=== PATIENT | male | born 1940 | race Caucasian/White ===

== ENCOUNTER 2017-10-21 06:00 | Day surgery (SDC) | payer MEDICARE ==
--- NOTE | 2017-10-10 07:41 | HP ---
CC: Jasmeet Fuller MD * HISTORY AND PHYSICAL: DATE OF PLANNED ADMISSION AND SURGERY: 10/21/17 HISTORY OF PRESENT ILLNESS: Mr. Christopher is a 77-year-old white male who is admitted with recurrent episodes of gross hematuria and a distal left ureteral calculus for cystoscopy, left ureteroscopy, laser lithotripsy, and left ureteral stent placement. Mr. Christopher is a known stone former and in March 2013, I performed a left ureteroscopy and laser lithotripsy for a 1.4 cm left ureteral calculus. The stone analysis showed it to be 70% uric acid and 30% calcium. He did well postoperatively. Three months ago, he started having recurrent episodes of gross painless hematuria. There was no associated flank or abdominal pain and no voiding symptoms. He was worked up with renal ultrasound and with a cystoscopy and no abnormalities were noted. He then had a CT urogram, which showed a 5 mm nonobstructing calculus in the distal left ureter about 4 to 5 cm above the level of the ureterovesical junction. There was moderate degree of edema of the ureteral wall adjacent to the calculus. No other abnormalities were noted in the kidneys or in the ureters. PAST MEDICAL HISTORY AND SYSTEM REVIEW: He had a transurethral resection of the prostate in December 2010 with good results. He has atrial fibrillation and is followed by Dr. Crawford in [place]. He is maintained on Pradaxa 150 mg daily, digoxin 125 mcg daily, metoprolol 50 mg daily. He has hyperlipidemia, on pravastatin 10 mg daily. 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 He denies any allergies to medications. He denies any chest pain or shortness of breath. He has sleep apnea. He was last evaluated by Dr. Crawford 1 year ago and I am including a copy of his note at that visit. He has not had any cardiac event or changes in his health since his last visit with him. PHYSICAL EXAMINATION GENERAL: Pleasant and healthy looking white male, who looks good for his age. VITAL SIGNS: Blood pressure 140/90, pulse of 90. LUNGS: Clear. HEART: Irregular. No murmurs. ABDOMEN: Soft. No masses. No tenderness and no CVA tenderness. EXTERNAL GENITALIA: Normal. RECTAL: Exam shows a nonenlarged and nonsuspicious prostate. IMPRESSION: 1. Recurrent episodes of gross painless hematuria of 3 months' duration with the only abnormal finding being a 5 mm calculus in the distal left ureter with edema of the ureteral wall adjacent to the calculus. This is the most likely cause of the episodes of hematuria. 2. Atrial fibrillation, on anticoagulation and treatment. 3. Hypertension. PLAN: Considering the episodes for gross hematuria have been recurring over the last 3 months and the stone is the only abnormal finding, it is unlikely that the stone will pass spontaneously at this time. The plan is to proceed with a cystoscopy, left ureteroscopy, laser lithotripsy and left ureteral stent placement. I instructed the patient to carefully strain his urine from the time of the CT until the day of the procedure. The plan is to do the procedure without having to stop his Pradaxa. All his questions were answered. [id number]/[facility] #: [id number] AMI
[~2017-10-21 06:00] MED LIST: Buffered Lidocaine 0.9% SYRIN* 5 ML/SYR SYRINGE INTRADERM ONE; Dexamethasone IV* 4 MG/ML 1 ML (4 MG) IV SLOW PU ONE; Famotidine IV* 10 MG/ML 2 ML (20 mg) IV ONE
[2017-10-21] MEDS ORDERED: Famotidine IV* 10 MG/ML 2 ML (20 mg) ONE (06:10)
[2017-10-21] MEDS ORDERED: Dexamethasone IV* 4 MG/ML 1 ML (4 MG) ONE (06:11)
[2017-10-21] MEDS ORDERED: Buffered Lidocaine 0.9% SYRIN* 5 ML/SYR SYRINGE ONE (06:11)
[2017-10-21] MEDS ORDERED: cefTRIAXone(*) 2 GM ADDV.VIAL IVPB ONE (06:11)
[2017-10-21] MEDS ORDERED: Naloxone* 0.4 MG/ML 1 ML VIAL IV PRN (07:17)
[2017-10-21] MEDS ORDERED: fentaNYL* 50 MCG/ML 2 ML VIAL (100 MCG VIAL) IV PRN (07:17)
[2017-10-21] MEDS ORDERED: DiMENhydriNATE IV* 50 MG/ML VIAL IV PUSH PRN (07:17)
[2017-10-21] MEDS ORDERED: Iohexol 180 (CONTRAST) 10 ML SDV IV ONE (07:20)
[2017-10-21] MEDS ORDERED: fentaNYL* 50 MCG/ML 2 ML VIAL (100 MCG VIAL) ONE (07:35)
[2017-10-21] MEDS ORDERED: Midazolam* 1 MG/ML 2 ML VIAL (2 MG) ONE (07:36)
--- NOTE | 2017-10-21 08:31 | RAD ---
CPT II Codes: 6045F INDICATION: Left ureteral stent placement. Fluoroscopic services provided for referring physician. 4 seconds of fluoroscopy time was used. This placement of a left ureteral stent. IMPRESSION: Left ureteral stent placement.
[2017-10-21] MEDS ORDERED: Phenylephrine INJ* 10 MG/ML 1 ML VIAL (10 MG) ONE (08:33)
[2017-10-21] MEDS ORDERED: Propofol* 10 MG/ML 20 ML BTL IV PUSH ONE (08:33)
[2017-10-21] MEDS ORDERED: Ondansetron INJ* 2 MG/ML VIAL ONE (08:33)
[2017-10-21 09:25] VITALS: BP 143/97
--- NOTE | 2017-10-21 23:33 | OP ---
CC: Dr. Fuller * DATE OF OPERATION: 10/21/17 - [facility] DATE OF : 38 SURGEON: Tramaine Thomas MD ANESTHESIOLOGIST: David Branham MD ANESTHESIA: General. PRE-OP DIAGNOSES: 1. Distal left ureteral calculus. 2. Recurrent episodes of gross hematuria due to above. POST-OP DIAGNOSES: 1. Distal left ureteral calculus. 2. Recurrent episodes of gross hematuria due to above. OPERATIVE PROCEDURE: 1. Cystoscopy. 2. Left ureteroscopy and extraction of distal left ureteral calculus (5 mm). 3. Left retrograde pyelography. INDICATIONS: Mr. Christopher is a 77-year-old white male who was worked up for recurrent episodes of gross painless hematuria. Cystoscopy was negative. Renal ultrasound was normal. CT urogram showed a 5-mm non obstructing distal left ureteral calculus. No other abnormalities were noted and the calculus was diagnosed as being the only identifiable cause of the gross hematuria. Because of the above history and finding, the patient was brought in for the above procedure. The patient had past history of renal calculus disease and had required a left ureteroscopy and laser lithotripsy for a 1.4-cm left ureteral calculus in March 2013. He also had TURP in the past. PATHOLOGY AT CYSTOSCOPY: The penile and bulbar urethrae looked normal. The prostatic urethra was wide open consistent with the previous TURP. Examination of the bladder showed moderate diffuse trabeculations. There were no suspicious bladder lesions seen. No calculi or diverticula were noted. Upon left ureteroscopy, a 5-mm calculus was noted in the distal left ureter about 2 cm above the ureterovesical junction. The calculus had the gross appearance of a calcium oxalate stone. It had irregular jagged edges. Left retrograde pyelography showed no hydronephrosis. DESCRIPTION OF PROCEDURE: After successful general anesthesia, the patient was placed in the lithotomy position and was prepped and draped for cystoscopy. Cystoscopy was performed. The bladder was carefully inspected and the above findings were noted. A flexible-tip hybrid wire was then introduced into the left orifice and positioned in the area of the renal pelvis under fluoroscopy guidance. A size 6.5 semi-rigid tapered ureteroscope was then introduced inside the bladder. A flexible tip spiral basket was then introduced into the port of the ureteroscope and its flexible tip was introduced inside the left ureter alongside the guidewire. That allowed the atraumatic introduction of the ureteroscope inside the ureter. The calculus was identified. The basket was deployed and the stone was removed with minimal trauma and sent for stone analysis. Retrograde pyelography was then performed. There was good drainage of contrast from the ureter. Because of the atraumatic nature of the procedure and good drainage of contrast, decision was made not to place a ureteral stent. The patient tolerated the procedure well and left the operating room in good condition. [id number]/[facility] #: [id number] MTDFernanda
== END 2017-10-21 09:25 | disposition home or self-care (01) ==
LOC: OR 06:00
PROVIDERS: ATTEND Urology
DX: N20.1 Calculus of ureter (principal); R31.0 Gross hematuria; I48.2 Chronic atrial fibrillation; E78.4 Other hyperlipidemia; I10 Essential (primary) hypertension; Z79.01 Long term (current) use of anticoagulants; Z87.891 Personal history of nicotine dependence; G47.33 Obstructive sleep apnea (adult) (pediatric); Z68.37 Body mass index [BMI] 37.0-37.9, adult
CPT/HCPCS: 74420; 82365; 88300; J0696; J1100; J2250; J2405; J2704; J3010

== ENCOUNTER 2019-05-29 16:57 | Emergency (ER) | payer MEDICARE ==
--- OUTSIDE RECORDS SUMMARY | 2019-05-29 17:04 | XMS REPORT | Continuity of Care Document ---
:1940 External Reference #:[id number] Author Name Tremayne Oconnor Care Team Providers Name Role Phone Patient's Choice Care Team Information Management Sme Unavailable Jasmeet Fuller MD Primary Care Physician Unavailable Payers Date Identification Numbers Payment Provider Subscriber Policy Number: [id number] Medicare Blue Ppo Wily Christopher Group Name: Medicare [address] [address] PayID: [id number] MARIA GUADALUPE Goncalves [id number] Problems Active Problems Provider Date Atrial fibrillation Onset: 03/07/2016 Sleep apnea Onset: 03/07/2016 Kidney stone Onset: 03/07/2016 Family History Date Family Member(s) Observation Comments Father Heart Disease Stroke Age:67yrs old Mother due to Colon Cancer () - Age:47yrs old Social History Type Date Description Comments Sex Unknown Marital Status Marital Status Lives With Lives With Spouse Occupation Retired Occupation Retired Hand Dominance Right-handed ETOH Use Occasionally consumes alcohol ETOH Use Occasionally consumes alcohol Tobacco Use Start: Unknown End: Patient is a former Quit 35 yrs ago Unknown smoker Recreational Drug Use Denies Drug Use Tobacco Use Start: Unknown End: Patient is a former quit 34 years ago Unknown smoker Recreational Drug Use Denies Drug Use Smoking Status Reviewed: 04/06/19 Patient is a former quit 34 years ago smoker Exercise Type/Frequency Exercises regularly swims and walks Allergies, Adverse Reactions, Alerts Active Allergies Reaction Severity Comments Date Bees 05/30/2017 Seasonal 05/30/2017 Medications Active Medications SIG Qnty Indications Ordering Date Provider Shingrix ok to have 2units Z00.00 Jasmeet 04/06/2019 immunization at [facility] 50mcg/0.5ML pharmacy now and in Suspension Rec 3-6 months Tums 1 chewtabs by mouth Unknown 500mg Chewtabs as needed, Metoprolol Tartrate 1 daily in at night 90tabs [place] [facility]ny 50mg Tablets Pradaxa 1 twice a day daily 180caps [place] 150mg MD [facility] Capsules Pravastatin Sodium 1 daily in the at 90tabs [place] night MD Jonny 10mg Tablets Potassium Citrate 3 daily 270tabs [place] ER MD Jonny 10Meq (1080 mg) Tablets ER Digoxin 1 daily 90tabs [place] 125mcg MD Jonny Tablets History Medications Co Q-10 Jasmeet Fuller 03/07/2016 - 100mg 04/02/2018 Capsules Folic Acid Jasmeet Fuller 03/07/2016 - 400mcg 04/02/2018 Tablets Ear Wax Drops 4 drops each 15units H61.23 Jasmeet Fuller 03/07/2016 - 6.5% ear twice a 04/02/2018 Solution day for 5 days Aleve 1-2 by mouth Unknown - 220mg Capsules twice a day as 04/06/2019 needed Epipen 2-Francisco Javier Unknown - 04/06/2019 0.3mg/0.3ML Solution Auto-Inject Fluorouracil once daily as 40units Jasmeet Fuller - 5% Cream needed 04/06/2019 Immunizations CPT Code Status Date Vaccine Lot # [id number] Given 06/11/2018 Fluzone High Dose 81962 Given 05/24/2015 Pneumococcal Conjugate Vaccine 13 Valent For Intramuscular Use 39912 Given 05/24/2015 Influenza Virus 3Yrs & Over 10953 Given 06/10/2014 Fluzone High Dose 59991 Given 05/19/2013 Tdap - Tetanus/Diptheria/Acellular Pertussis 92299 Given 05/19/2012 Influenza Virus 3Yrs & Over 56530 Given 08/29/2011 Zoster (Zostavax) 64951 Given 05/24/2011 Influenza Virus 3Yrs & Over 20456 Given 05/19/2010 Influenza Virus 3Yrs & Over 22491 Given 05/17/2009 Influenza Virus 3Yrs & Over 95928 Given 06/16/2008 Influenza Virus 3Yrs & Over 67559 Given 06/02/2006 Influenza Virus 3Yrs & Over 79297 Given 09/24/2005 Pneumonia Vaccine 12282 Given 07/18/2005 Influenza Virus 3Yrs & Over 04631 Given 07/11/2004 Tetanus And Diptheria (Td) For Adult Use Preservative Free Vital Signs Date Vital Result Comment 04/06/2019 1:13pm Height 69.5 inches 5'9.50" Weight 265.00 lb Heart Rate 65 /min BP Systolic 126 mmHg BP Diastolic 78 mmHg Respiratory Rate 18 /min O2 % BldC Oximetry 97 % room air BMI (Body Mass Index) 38.6 kg/m2 10/22/2018 1:54pm Weight 264.00 lb BP Systolic 120 mmHg BP Diastolic 86 mmHg 04/02/2018 1:03pm Weight 258.00 lb 04/02/2018 1:04pm Height 69.5 inches Weight 258.00 lb Heart Rate 70 /min BP Systolic 130 mmHg BP Diastolic 72 mmHg Respiratory Rate 22 /min BMI (Body Mass Index) 37.5 kg/m2 07/18/2017 12:44pm Weight 257.50 lb BP Systolic 120 mmHg BP Diastolic 80 mmHg 05/30/2017 11:17am Height 68 inches 5'8" Weight 258.00 lb Heart Rate 56 /min BP Systolic Sitting 150 mmHg BP Diastolic Sitting 98 mmHg Respiratory Rate 16 /min Pain Level 1 O2 % BldC Oximetry 96 % BMI (Body Mass Index) 39.2 kg/m2 04/01/2017 1:07pm Height 69.75 inches Weight 258.00 lb Heart Rate 76 /min BP Systolic 128 mmHg BP Diastolic 92 mmHg Respiratory Rate 16 /min Body Temperature 97.4 F BMI (Body Mass Index) 37.3 kg/m2 03/29/2016 1:04pm Height 69.25 inches Weight 242.00 lb Heart Rate 76 /min BP Systolic 128 mmHg BP Diastolic 82 mmHg BMI (Body Mass Index) 35.5 kg/m2 03/07/2016 2:12pm Height 69.25 inches Weight 247.00 lb Heart Rate 80 /min BP Systolic 120 mmHg BP Diastolic 82 mmHg BMI (Body Mass Index) 36.2 kg/m2 Results Test Date Facility Test Result H/L Range Note Laboratory test 08/04/2018 N2N/[facility] Import PSA Screening 0.214 ng/mL 0-4 1 finding Comp Metabolic 08/04/2018 N2N/CCD Import Albumin 4.1 g/dL 3.2-5.2 Panel Albumin/Globulin Ratio 1.7 1 1-3 Alkaline Phosphatase 76 U/L 34-104 Alt 16 U/L 7-52 Anion Gap 6 mmol/L 2-11 Ast 16 U/L 13-39 BUN/Creatinine Ratio 14.3 1 8-20 Blood Urea Nitrogen 14 mg/dL 6-24 Calcium 9.4 mg/dL 8.6-10.3 Chloride 107 mmol/L 101-111 Co2 Carbon Dioxide 29 mmol/L 22-32 Creatinine 0.98 mg/dL 0.67-1.17 Egfr 89.5 1 2 Egfr Non- 74.0 1 Globulin 2.4 g/dL 2-4 Glucose 62 mg/dL Low 70-100 Potassium 4.1 mmol/L 3.5-5 Sodium 142 mmol/L 135-145 Total Bilirubin 0.60 mg/dL 0.2-1 Total Protein 6.5 g/dL 6.4-8.9 Laboratory test 04/14/2018 N2N/Fio Import Thyroid Stim 2.59 uIU/mL 0.3- 4.2 3 finding Hormone CBC 04/14/2018 N2N/Fio Import Hematocrit 49.2 % High 38-48 Hemoglobin 16.5 gm/dL 12.8-17 Mean Cell Volume 90.3 fl 80-96 Mean Corpuscular HGB 30.3 pg 27-33 Mean Corpuscular HGB Conc 33.5 g/dL 31.7-36 Mean Platelet Volume 11.0 fL High 6.6-10.6 Platelet Count 217 K/uL 155-360 Red Blood Count 5.45 M/uL 4.2-5.8 Red Cell Distri Width %CV 13.9 % 11.6-15.8 White Blood Count 6.3 K/uL 3.4-10.5 Comprehensive Metabolic Panel 04/14/2018 N2N/Fio Import Alb/Glob 1.0 ratio Albumin 3.5 g/dL 3.4-5 Alkaline Phosphatase 76 U/L 45-117 Anion Gap 5 mEq/L Low 8-16 BUN 17 mg/dL 7-18 BUN/Creat 15.4 ratio Bilirubin,Total 0.7 mg/dL 0.2-1 Calcium 8.1 mg/dL Low 8.5-10.1 Carbon Dioxide 30 mmol/L 21-32 Chloride 109 mmol/L High 98-107 Creatinine 1.1 mg/dL 0.6-1.3 Globulin 3.4 g/dL 1.9-4.3 Glom Filtration Rate, Estimate >60 mL/min Glucose 112 mg/dL High 74-106 If >60 mL/min 4 Potassium 4.2 mmol/L 3.5-5.1 SGPT/Alt 22 U/L 12-78 Sgot/Ast 18 U/L 15-37 Sodium 144 mmol/L 136-145 Total Protein 6.9 g/dL 6.4-8.2 LDL Cholesterol Profile 04/14/2018 N2N/CCD Import Cholesterol 128 mg/dL 5 HDL Cholesterol 30 mg/dL Low 6 LDL-Cholesterol 73 mg/dL 7 Triglycerides 125 mg/dL 8 Microalbumin,Random Urine 04/14/2018 N2N/CCD Import Microalbumin,Urine 13.5 mg/L Laboratory test finding 09/26/2017 N2N/CCD Import PSA Screening 0.285 0- 4 9 ng/mL Basic Metabolic Panel 09/26/2017 N2N/CCD Import Anion Gap 5 mmol/L 2-11 BUN/Creatinine Ratio 13.8 1 8-20 Blood Urea Nitrogen 16 mg/dL 6-24 Calcium 9.5 mg/dL 8.6-10.3 Chloride 104 mmol/L 101-111 Co2 Carbon Dioxide 29 mmol/L 22-32 Creatinine 1.16 mg/dL 0.67-1.17 Egfr 78.5 1 10 Egfr Non- 61.1 1 Glucose 96 mg/dL 70-100 Potassium 5.2 mmol/L High 3.5-5 Sodium 138 mmol/L 133-145 Microalbumin,Random Urine 07/19/2017 N2N/CCD Import Microalbumin,Urine 45.1 mg/L 11 LDL Cholesterol Profile 07/19/2017 N2N/CCD Import Cholesterol 139 mg/dL 12 HDL Cholesterol 35 mg/dL Low 13 LDL-Cholesterol 84 mg/dL 14 Triglycerides 99 mg/dL 15 Comprehensive Metabolic Panel 07/19/2017 N2N/CCD Import Alb/Glob 1.0 ratio Albumin 3.5 g/dL 3.4-5 Alkaline Phosphatase 82 U/L 45-117 Anion Gap 4 mEq/L Low 8-16 BUN 18 mg/dL 7-18 BUN/Creat 16.3 ratio Bilirubin,Total 0.7 mg/dL 0.2-1 Calcium 9.2 mg/dL 8.5-10.1 Carbon Dioxide 29 mmol/L 21-32 Chloride 110 mmol/L High 98-107 Creatinine 1.1 mg/dL 0.6-1.3 Globulin 3.6 g/dL 1.9-4.3 Glom Filtration Rate, Estimate >60 mL/min Glucose 92 mg/dL 74-106 If >60 mL/min 16 Potassium 4.1 mmol/L 3.5-5.1 SGPT/Alt 23 U/L 12-78 Sgot/Ast 16 U/L 15-37 Sodium 143 mmol/L 136-145 Total Protein 7.1 g/dL 6.4-8.2 Laboratory test 03/29/2016 N2N/CCD Import LDL Cholesterol 93 mg/dL 17 finding Direct CBC 03/29/2016 N2N/CCD Import Hematocrit 48 % 42-52 Hemoglobin 16.0 g/dL 14-18 Mean Corpuscular HGB Conc 34 g/dL 31-36 Mean Corpuscular Hemoglobin 30 pg 27-31 Mean Corpuscular Volume 88 fL 80-94 Mean Platelet Volume 9 um3 7.4-10.4 Platelet Count 249 10^3/uL 150-450 Red Blood Count 5.38 10^6/uL 4-5.4 Red Cell Distribution Width 14 % 10.5-15 White Blood Count 8.1 10^3/uL 3.5-10.8 Comprehensive Metabolic Panel 03/29/2016 N2N/CCD Import Albumin 4.0 g/dL 3.2-5.2 Albumin/Globulin Ratio 1.5 1 1-3 Alkaline Phosphatase 69 U/L 34-104 Alt 14 U/L 7-52 Anion Gap 5 mmol/L 2-11 Ast 17 U/L 13-39 BUN/Creatinine Ratio 14.7 1 8-20 Blood Urea Nitrogen 16 mg/dL 6-24 Calcium 9.1 mg/dL 8.6-10.3 Chloride 107 mmol/L 101-111 Co2 Carbon Dioxide 28 mmol/L 22-32 Creatinine 1.09 mg/dL 0.67-1.17 Egfr 84.6 1 18 Egfr Non- 65.8 1 Globulin 2.6 g/dL 2-4 Glucose 76 mg/dL 70-100 Potassium 4.8 mmol/L 3.5-5 Sodium 140 mmol/L 133-145 Total Bilirubin 0.90 mg/dL 0.2-1 Total Protein 6.6 g/dL 6.4-8.9 1 Serum levels of PSA measured using the U[employer] Clickpass DXI Hybritech immunoassay should not be interpreted as absolute evidence of the presence or absence of disease. The PSA value should be used in conjunction with other pertinent clinical diagnostic procedures. A PSA value in the range of 0.1 to 0.6 ng/ml is indeterminate if being used as an indicator of recurrent or residual disease. The values obtained with different assay methods or kits cannot be used interchangeably. 2 Because ethnic data is not always readily available, this report includes an eGFR for both -Americans and non- Americans. The National Kidney Disease Education Program (NKDEP) does not endorse the use of the MDRD equation for patients that are not between the ages of 18 and 70, are , have extremes of body size, muscle mass, or nutritional status, or are non- or non-. According to the National Kidney Foundation, irrespective of diagnosis, the stage of the disease is based on the level of kidney function: Stage Description GFR(mL/min/1.73 m(2)) 1 Kidney damage with normal or decreased GFR 90 2 Kidney damage with mild decrease in GFR 60-89 3 Moderate decrease in GFR 30-59 4 Severe decrease in GFR 15-29 5 Kidney failure <15 (or dialysis) 3 E78.5 I10 I48.2 4 Note: Persistent reduction for 3 months or more in an eGFR <60 mL/min/1.73 m2 defines CKD. Patients with eGFR values >/=60 mL/min/1.73 m2 may also have CKD if evidence of persistent proteinuria is present. The original MDRD equation for estimated GFR is not valid for patients less than 18 years of age. Additional information may be found at www.kdoqi.org. 5 Reference Guidelines*: Desirable: ........... < 200 mg/dL Borderline High: ..... 200-239 mg/dL High: ................ >= 240 mg/dL * The National Cholesterol Education Program (NCEP) 6 Reference Guidelines*: Low HDL: ..... < 40 mg/dL Normal: ..... 40-60 mg/dL Desirable: ... > 60 mg/dL *The National Cholesterol Education Program(NCEP) 7 Reference Guidelines*: Optimal:........... <100 mg/dL Near Optimal....... 100-129 mg/dL Borderline High.... 130-159 mg/dL High............... 160-189 mg/dL Very High.......... >=190 mg/dL * Source: National Cholesterol Education Program (NCEP) 8 Reference Guidelines*: Normal: ............. < 150 mg/dL Borderline High: .... 150-199 mg/dL High: ............... 200-499 mg/dL Very High: .......... > 500 mg/dL * Source: National Cholesterol Education Program (NCEP) 9 Serum levels of PSA measured using the Ugo Clickpass DXI Hybritech immunoassay should not be interpreted as absolute evidence of the presence or absence of disease. The PSA value should be used in conjunction with other pertinent clinical diagnostic procedures. A PSA value in the range of 0.1 to 0.6 ng/ml is indeterminate if being used as an indicator of recurrent or residual disease. The values obtained with different assay methods or kits cannot be used interchangeably. 10 Because ethnic data is not always readily available, this report includes an eGFR for both -Americans and non- Americans. The National Kidney Disease Education Program (NKDEP) does not endorse the use of the MDRD equation for patients that are not between the ages of 18 and 70, are , have extremes of body size, muscle mass, or nutritional status, or are non- or non-. According to the National Kidney Foundation, irrespective of diagnosis, the stage of the disease is based on the level of kidney function: Stage Description GFR(mL/min/1.73 m(2)) 1 Kidney damage with normal or decreased GFR 90 2 Kidney damage with mild decrease in GFR 60-89 3 Moderate decrease in GFR 30-59 4 Severe decrease in GFR 15-29 5 Kidney failure <15 (or dialysis) 11 E78.5,I10 12 Reference Guidelines*: Desirable: ........... < 200 mg/dL Borderline High: ..... 200-239 mg/dL High: ................ >= 240 mg/dL * The National Cholesterol Education Program (NCEP) 13 Reference Guidelines*: Low HDL: ..... < 40 mg/dL Normal: ..... 40-60 mg/dL Desirable: ... > 60 mg/dL *The National Cholesterol Education Program(NCEP) 14 Reference Guidelines*: Optimal:........... <100 mg/dL Near Optimal....... 100-129 mg/dL Borderline High.... 130-159 mg/dL High............... 160-189 mg/dL Very High.......... >=190 mg/dL * Source: National Cholesterol Education Program (NCEP) 15 Reference Guidelines*: Normal: ............. < 150 mg/dL Borderline High: .... 150-199 mg/dL High: ............... 200-499 mg/dL Very High: .......... > 500 mg/dL * Source: National Cholesterol Education Program (NCEP) 16 Note: Persistent reduction for 3 months or more in an eGFR <60 mL/min/1.73 m2 defines CKD. Patients with eGFR values >/=60 mL/min/1.73 m2 may also have CKD if evidence of persistent proteinuria is present. The original MDRD equation for estimated GFR is not valid for patients less than 18 years of age. Additional information may be found at www.kdoqi.org. 17 Desirable: <100 mg/dL Near Optimal: 100-129 mg/dL Borderline High: 130-159 mg/dL High: 160-189 mg/dL Very High: >189 mg/dL 18 Because ethnic data is not always readily available, this report includes an eGFR for both -Americans and non- Americans. The National Kidney Disease Education Program (NKDEP) does not endorse the use of the MDRD equation for patients that are not between the ages of 18 and 70, are , have extremes of body size, muscle mass, or nutritional status, or are non- or non-. According to the National Kidney Foundation, irrespective of diagnosis, the stage of the disease is based on the level of kidney function: Stage Description GFR(mL/min/1.73 m(2)) 1 Kidney damage with normal or decreased GFR 90 2 Kidney damage with mild decrease in GFR 60-89 3 Moderate decrease in GFR 30-59 4 Severe decrease in GFR 15-29 5 Kidney failure <15 (or dialysis) Procedures Date Code Description Status 10/15/2017 53013 EKG, Interpretation Only Completed 09/04/2017 [id number] Diabetic Retinal Eye Exam Completed 08/24/2017 12551 Colonoscopy Flexible Diagnostic Completed 08/24/2017 [id number] Colonoscopy Completed 05/30/2017 84176 Rad Exam; Foot Comp Completed 05/30/2017 75057 Rad Exam; Ankle Comp Completed 03/29/2016 61158 Visual funct screen test, automated Completed 03/29/2016 59697 Pure Tone Hearing Test, Air Completed 03/29/2016 38271 Remove Impacted Cerumen Completed Encounters Type Date Location Provider Dx Diagnosis Office Visit 10/22/2018 [facility] Jasmeet I48.2 Chronic atrial 1:45p MD Jonny fibrillation C44.310 Basal cell carcinoma of skin of unspecified parts of face Office Visit 05/30/2017 11:00a [facility] M M76.822 [facility] MD Bee tendinitis, left AT [place] leg M25.572 Pain in left ankle and joints of left foot Plan of Treatment Future Appointment(s):04/07/2020 1:00 pm - Jasmeet Fuller MD at [facility]04/06/2019 - Jasmeet Fuller MDZ00.00 Encounter for general adult medical examination without abnormal findingsNew Medication:Shingrix 50 mcg/0.5ML - ok to have immunization at pharmacy now and in 3-6 monthsNew Labs: Basic Metabolic Panel, Ordered: 04/06/19CBC Auto Diff, Ordered: 04/06/19Lipid Profile (Trig/Chol/HDL), Ordered: 04/06/19Follow up:1 year nsswramyS18.11 Encounter for screening for malignant neoplasm of colonReferral:Dorie Gómez MD, MqxczjhpiegiifypZ17.5 Encounter for screening for malignant neoplasm of dmryyusnM46.2 Chronic atrial fibrillationNew Labs:Digoxin, Ordered: 04/06/19
[2019-05-29 17:12] VITALS: BP 136/77
--- NOTE | 2019-05-29 17:24 | UC ---
Ear Complaint HPI - HPI Summary HPI Summary: 78-year-old male comes in with a chief complaint of left ear discomfort for several days. No fevers no chills no upper or tract infection symptoms. Somebody to take a look in his left ear and saw a lot of wax. - History of Current Complaint Chief Complaint: UCEar Stated Complaint: LT EAR ACHE Time Seen by Provider: 05/29/19 17:15 Pain Intensity: 6 - Allergies/Home Medications Allergies/Adverse Reactions: Allergies Allergy/AdvReac Type Severity Reaction Status Date / Time No Known Allergies Allergy Verified 05/29/19 17:09 PMH/Surg Hx/FS Hx/Imm Hx Previously Healthy: Yes Endocrine History: Dyslipidemia Cardiovascular History: Hypertension, Atrial Fibrillation - Surgical History Surgical History: Yes Surgery Procedure, Year, and Place: Bilat total knee. right inguinal hernia repair x2. fx right ankle. TURP. fatty tumor removal base of neck 01/[address] Moralez - Family History Known Family History: Positive: Hypertension Negative: Diabetes - Social History Alcohol Use: Occasionally Substance Use Type: None Smoking Status (MU): Never Smoked Tobacco When Did the Patient Quit Smoking/Using Tobacco: 1981 - Immunization History Vaccination Up to Date: Yes Review of Systems All Other Systems Reviewed And Are Negative: Yes Constitutional: Positive: Negative Skin: Positive: Negative Eyes: Positive: Negative ENT: Positive: Ear Ache Respiratory: Positive: Negative Cardiovascular: Positive: Negative Gastrointestinal: Positive: Negative Motor: Positive: Negative Neurovascular: Positive: Negative Musculoskeletal: Positive: Negative Neurological: Positive: Negative Psychological: Positive: Negative Is Patient Immunocompromised?: No Physical Exam Triage Information Reviewed: Yes Appearance: Well-Appearing, No Pain Distress, Well-Nourished Vital Signs: Initial Vital Signs Temp 97.8 F 05/29/19 17:09 Pulse 77 05/29/19 17:09 Resp 16 05/29/19 17:09 BP 136/77 05/29/19 17:09 Pulse Ox 96 05/29/19 17:09 Vital Signs Reviewed: Yes Eye Exam: Normal Eyes: Positive: Conjunctiva Clear ENT: Positive: Pharynx normal, Other - Left cerumen impaction. Negative: Nasal drainage Neck: Positive: Supple Respiratory: Positive: Lungs clear, Normal breath sounds, No respiratory distress Cardiovascular: Positive: RRR Musculoskeletal: Positive: Strength Intact, ROM Intact Neurological: Positive: Alert Psychological: Positive: Age Appropriate Behavior Skin Exam: Normal Ear Complaint Course/Dx - Course Course Of Treatment: Several ear flushes have been unsuccessful or removal of the cerumen. Plan is continue [id number] earwax removal drops and then get we evaluated either here or his primary care doctors are ENT. - Differential Dx/Diagnosis Provider Diagnosis: Impacted cerumen, left ear Discharge ED - Sign-Out/Discharge Documenting (check all that apply): Patient Departure All imaging exams completed and their final reports reviewed: No Studies - Discharge Plan Condition: Stable Disposition: HOME Patient Education Materials: Cerumen Impaction (ED) Referrals: Jasmeet Fuller MD [Primary Care Provider] - Chandler Marmolejo MD [Medical Doctor] - Joseph Maria MD [Medical Doctor] - Additional Instructions: FOLLOW UP WITH YOUR DOCTOR, ENT, OR RETURN HERE IF NOT COMPLETELY IMPROVED. CONTINUE WITH THE OVER THE COUNTER EAR WAX REMOVAL DROPS. DO NOT USE Q TIPS. GET RECHECKED SOONER IF WORSE OR ANY QUESTIONS OR CONCERNS. - Billing Disposition and Condition Condition: STABLE Disposition: Home
== END 2019-05-29 18:00 | disposition home or self-care (01) ==
LOC: UCCORT 16:57
DX: H61.22 Impacted cerumen, left ear (principal); I10 Essential (primary) hypertension; Z87.891 Personal history of nicotine dependence
CPT/HCPCS: 99212; G0463